=== PATIENT | female | born 1950 | race Caucasian/White ===

== ENCOUNTER 2023-10-10 11:37 | Outpatient (CLI) | payer MEDICARE, BC | END 2023-10-10 11:38 | disposition home or self-care (01) | LOC: SCSRAD 11:37 | PROVIDERS: ATTEND Surgery | DX: S32.049A Unspecified fracture of fourth lumbar vertebra, initial encounter for closed fracture (principal); S22.081A Stable burst fracture of T11-T12 vertebra, initial encounter for closed fracture; S22.080A Wedge compression fracture of T11-T12 vertebra, initial encounter for closed fracture | CPT/HCPCS: 72072; 72100 ==